=== PATIENT | male | born 1965 | race Caucasian/White ===

== ENCOUNTER 2016-09-07 15:38 | Emergency (ER) | payer BC ==
[2016-09-07 16:03] VITALS: BP 152/99
--- NOTE | 2016-09-07 16:33 | UC ---
Hypertension HPI - HPI Summary HPI Summary: 50 M w/ PMH of HTN presents with elevated bp. He has elevated blood pressure last year after he hurt his right hop and was diagnosed with HTN and placed on hydrochlorothiazide. He said that with increase excersie after the surgery he was able to decrease his BP and he no longer needed the medciaiton. He says this past week he felt funny and that he went to his primary and was diagnosed with HTN on wednesday. They restarted him on hydrochlorothiazide and lisinopril. He said that the funny feeling resolved and was feeling better. He said today he was feeling very anxious so he went to [facility] and checked his bp which was 160/ 92. He denies any chest pain, SOB, or headache or any other symptoms. He says thought that the elevated blood pressure makes him very anxious. He sees dr mirza for his primary. He is a nonsmoker. He does have a family history of heart disease and HTN. - History of Current Complaint Chief Complaint: UCGeneralIllness Stated Complaint: ELEVATED BLOOD PRESSURE Time Seen by Provider: 09/07/16 16:31 - Allergies/Home Medications Allergies/Adverse Reactions: Allergies Allergy/AdvReac Type Severity Reaction Status Date / Time No Known Allergies Allergy Verified 09/07/16 15:53 Home Medications: Home Medications Hydrochlorothiazide TAB* [Hydrodiuril TAB*] 1 tab DAILY 09/07/16 [History Confirmed 09/07/16] Lisinopril TAB* [Prinivil TAB 5 MG*] 1 tab QPM 09/07/16 [History Confirmed 09/07] Naproxen TAB* [Naprosyn TAB*] 1 tab PRN 09/07/16 [History] PMH/Surg Hx/FS Hx/Imm Hx Endocrine History Of: Denies: Diabetes Cardiovascular History Of: Reports: Hypertension Denies: Pacemaker/ICD GI/ History Of: Denies: Renal Disease - Surgical History Surgical History: Yes Surgery Procedure, Year, and Place: 2016 RIGHT hip surgery - Family History Known Family History: Positive: Cardiac Disease, Hypertension - Social History Alcohol Use: Weekly Substance Use Type: None Smoking Status (MU): Never Smoked Tobacco Review of Systems Constitutional: Negative Respiratory: Negative Cardiovascular: Negative All Other Systems Reviewed And Are Negative: Yes Physical Exam Triage Information Reviewed: Yes Appearance: Well-Appearing Vital Signs: Initial Vital Signs Temp 99.9 F 09/07/16 15:54 Pulse 68 09/07/16 15:54 Resp 18 09/07/16 15:54 BP 152/99 09/07/16 15:54 Pulse Ox 100 09/07/16 15:54 Vital Signs Reviewed: Yes Eyes: Positive: Conjunctiva Clear ENT: Positive: Normal ENT inspection Respiratory: Positive: Chest non-tender, Lungs clear, Normal breath sounds Cardiovascular: Positive: RRR Musculoskeletal: Positive: Strength Intact, No Edema Diagnostics - EKG Cardiac Rate: Bradycardia - 58 Cardiac Rhythm: Sinus: Normal Ectopy: None ST Segment: Normal Hypertension Course/Dx - Course Course Of Treatment: 50 M presents with elevated BP, no chest pain or signs of hypertensive emergency, bp is not high enough for hypertensive urgency, explained that over time high blood pressure can damage heart but short term is okay especially since has only been on medication for three days and will take time for diuretic to work, explained that lower blood pressure too quickly can affect kidneys and lead to more serious problems, EKG normal in office, patient understands and agrees with plan - Differential Dx/Diagnosis Differential Diagnosis/HQI PQRI: Hypertension, Hypertensive Urgency, Myocardial Infarction Provider Diagnoses: elevated blood pressure Discharge - Discharge Plan Condition: Good Disposition: HOME Patient Education Materials: DASH Eating Plan (ED) Referrals: Kyle Martines MD [Primary Care Provider] - Additional Instructions: Follow up with your primary for continued care of blood pressure Take blood pressure medication as prescribed Decrease salt intake Return to ED if develop chest pain or severe headache or any new or worsening symptoms
== END 2016-09-07 17:12 | disposition home or self-care (01) ==
LOC: UCEAST 15:38
DX: I10 Essential (primary) hypertension (principal)
CPT/HCPCS: 93005; 99211; G0463